=== PATIENT | female | born 1980 | race Caucasian/White ===

== ENCOUNTER 2016-11-15 15:18 | Emergency (ER) | payer MEDICAID ==
[~2016-11-15] VITALS: Ht 154.9 cm; Wt 59.0 kg
[~2016-11-15 15:18] MED LIST: ACET-9529 PO; DOCU-67 PO; IBUP-974 PO; LEVO500T6 PO; SACC250C1 PO
[2016-11-15 15:30] VITALS: BP 92/53
[2016-11-15] MEDS ORDERED: ACETAMINOPHEN 325 MG TAB ONE (15:39)
--- NOTE | 2016-11-15 15:39 | NUR ---
Patient ambulated to bed 4 with family. RN evaluating patient at bedside.
[2016-11-15] MEDS ORDERED: NACL 0.9% 500 ML IV SCH (15:48)
[2016-11-15] MEDS ORDERED: KETOROLAC 30 MG/ML VIAL IVP ONE (15:50)
[2016-11-15] MEDS ORDERED: cefTRIAXone 1,000 MG in DEXT 5% MINI-BAG PLUS 50 ML IV ONE (15:50)
--- NOTE | 2016-11-15 16:10 | NUR ---
PATIENT PRESENTS TO ED WITH C/O FEVER WITH LOWER BACK PAIN X2 DAYS .DENIES N/V/D; SKIN IS PINK/WARM/DRY; AAOX4 WITH EVEN AND STEADY GAIT; LUNGS CLEAR BL; HR EVEN AND REGULAR; PT DENIES ANY FEVER, CP, SOB, OR COUGH AT THIS TIME; PATIENT STATES PAIN OF 10/10 AT THIS TIME; VSS; PATIENT POSITIONED FOR COMFORT; HOB ELEVATED; BEDRAILS UP X2; BED DOWN. ER MD MADE AWARE OF PT STATUS.
[2016-11-15] MEDS ORDERED: cefTRIAXone 1,000 MG VIAL ONE (16:11)
[2016-11-15 16:15] LABS: HEMOGLOBIN 12.7 g/dL (12.0-16.0); MEAN CORPUSCULAR HEMOGLOBIN 30 pg (27-31); MEAN CORPUSCULAR HGB CONC 34 g/dL (33-37); MEAN CORPUSCULAR VOLUME 89 fL (80-94); PLATELET COUNT (AUTO) 161 K/uL (140-450); RED BLOOD CELL COUNT(AUTO) 4.29 MIL/uL (4.20-5.40); RED CELL DISTRIBUTION WIDTH 12.7 % (11.6-13.7)
[2016-11-15 16:23] LABS: APPEARANCE,URINE CLEAR (CLEAR); BILIRUBIN,URINE NEGATIVE (NEGATIVE); BLOOD, URINE NEGATIVE (NEGATIVE); COLOR,URINE YELLOW (YELLOW); LEUKOCYTE ESTERASE ,URINE TRACE (NEGATIVE); NITRITE, URINE NEGATIVE (NEGATIVE); PH,URINE 7.5 (5.0-9.0); PROTEIN,URINE NEGATIVE (NEGATIVE); UGLUCOSE NEGATIVE (NEGATIVE); UROBILINOGEN,URINE 0.2 EU/dL (0.2 - 1)
[2016-11-15 16:35] LABS: LACTIC ACID 1.3 mmol/L (0.4-2.0)
[2016-11-15 16:37] LABS: BAND % (MANUAL) 5 % (0-8); LYMPHOCYTES % (MANUAL) 12 % (20-46); MONOCYTES % (MANUAL) 4 % (5-12); NEUTROPHILS % (MANUAL) 79 (43-65)
[2016-11-15 16:37] LABS: RBC,URINE 0-3 /HPF (0-5); SQUAMOUS EPITHELIAL CELL,UR 0-3 /LPF (0-3 (FEW))
[2016-11-15 16:38] LABS: PLATELET ESTIMATE ADEQUATE
[2016-11-15 16:38] LABS: BACTERIA,URINE 1+ /HPF (None Seen)
[2016-11-15 16:47] LABS: ALBUMIN 3.4 g/dL (3.4-5.0); ANION GAP 14.3 (8-16); CALCIUM 8.4 mg/dL (8.5-10.1); CARBON DIOXIDE 23.1 mmol/L (21-32); CREATININE 0.8 mg/dL (0.6-1.3); MAGNESIUM 1.5 mg/dL (1.8-2.4); POTASSIUM 3.4 mmol/L (3.5-5.1); TOTAL PROTEIN, SERUM 7.7 g/dL (6.4-8.2)
[2016-11-15] MEDS ORDERED: MORPHINE SULFATE 4 MG/ML SYR IVP ONE (16:55)
[2016-11-15] MEDS ORDERED: MAGNESIUM OXIDE 400 MG TAB PO ONE (17:25)
[2016-11-15] MEDS ORDERED: POTASSIUM CHLORIDE 10 MEQ TABER PO ONE (17:25)
--- NOTE | 2016-11-15 17:38 | NUR ---
START TIME OF ADMINISTRATION OF CEFTRIAXONE SODIUM/ROCEPHIN WAS 1635 AND END TIME OF ADMINISTRATION WAS 1710.
[2016-11-15] MEDS ORDERED: MAGNESIUM OXIDE 400 MG TAB PO SCH (17:57)
--- NOTE | 2016-11-15 17:59 | NUR ---
PT VERBALIZES DECREASE OF PAIN FROM 10/10 TO 0/10
--- NOTE | 2016-11-15 18:07 | NUR ---
PT AMBULATED TO THE RESTROOM;
[2016-11-15 18:18] VITALS: BP 125/78
--- NOTE | 2016-11-15 18:18 | NUR ---
Patient discharged with v/s stable. Written and verbal after care instructions given and explained. Patient alert, oriented and verbalized understanding of instructions. Ambulatory with steady gait. All questions addressed prior to discharge. ID band removed. Patient advised to follow up with PMD. Rx of CEPHALEXIN,NORCO ,ZOFRAN AND NAPROSYN given. Patient educated on indication of medication including possible reaction and side effects. Opportunity to ask questions provided and answered.
== END 2016-11-15 18:18 | disposition home or self-care (01) ==
LOC: MED 15:18
DX: N12 Tubulo-interstitial nephritis, not specified as acute or chronic (principal); Z90.49 Acquired absence of other specified parts of digestive tract
CPT/HCPCS: 36415; 80053; 81001; 81025; 83605; 83735; 85025; 87040; 87086; 87186; 96365; 96375; 99285; J0696; J1885; J2270; J7030; J7060; 81002; 99284

== ENCOUNTER 2017-07-24 19:22 | Emergency (ER) | payer MEDICAID ==
[~2017-07-24] VITALS: Ht 157.5 cm; Wt 61.2 kg
[~2017-07-24 19:22] MED LIST changes: +DOCU-299 PO; -DOCU-67 PO; -LEVO500T6 PO
[2017-07-24 19:27] VITALS: BP 129/90
[2017-07-24] MEDS ORDERED: PROCHLORPERAZINE 10 MG/2 ML VIAL IM ONE (21:20)
[2017-07-24] MEDS ORDERED: diphenhydrAMINE 50 MG/ML VIAL IM ONE (21:20)
[2017-07-24 22:48] VITALS: BP 130/86
== END 2017-07-24 22:49 | disposition home or self-care (01) ==
LOC: MED 19:22
DX: G43.909 Migraine, unspecified, not intractable, without status migrainosus (principal); R03.0 Elevated blood-pressure reading, without diagnosis of hypertension; Z79.899 Other long term (current) drug therapy
CPT/HCPCS: 96372; 99284; J0780; J1200